=== PATIENT | male | born 1960 | race Caucasian/White ===

== ENCOUNTER 2017-08-31 08:53 | Emergency (ER) | payer OTHER ==
[~2017-08-31] VITALS: Ht 177.8 cm; Wt 126.1 kg
[~2017-08-31 08:53] MED LIST: ADULT LOW DOSE81 M1 PO; ALDACTONE25 MG PO; AMARYL4 MG PO; AMLODIPINE BESY10 MG PO; ASPIRIN81 M2 PO; CLEOCIN300 MG PO; FORTAMET1000 M1; FORTAMET1000 M1 PO; GLUCOPHAGE1000 MG PO; HYDROCHLOROTHIA25 MG PO; JANUVIA100 MG PO; KEFLEX500 MG PO; LABETALOL HCL200 MG PO; LANTUS 3 M100 UNITS1 SC; LIPITOR20 MG PO; LISINOPRIL40 MG PO; NEXIUM40 MG PO; NORMODYNE,TRAN200 MG PO; NORVASC10 MG PO; TRAMADOL HCL50 MG PO; VIAGRA100 MG PO; VICODIN,LORT1 TABLET PO
[2017-08-31] MEDS ORDERED: BACTRIM,SEPT1 TABLET PO (09:27)
[2017-08-31] MEDS ORDERED: AUGMENTIN875 MG PO (09:27)
[2017-08-31 09:58] VITALS: BP 132/68
== END 2017-08-31 09:58 | disposition home or self-care (01) ==
LOC: EME 08:53
DX: L03.116 Cellulitis of left lower limb (principal); Z88.8 Allergy status to other drugs, medicaments and biological substances
CPT/HCPCS: 99281; 99284

== ENCOUNTER 2018-01-06 18:55 | Emergency (ER) | payer OTHER ==
[~2018-01-06] VITALS: Ht 177.8 cm; Wt 128.8 kg
[~2018-01-06 18:55] MED LIST changes: +AUGMENTIN875 MG PO; +BACTRIM,SEPT1 TABLET PO
[2018-01-06 19:51] LABS: HEMATOCRIT 42.1 % (38.0-50.0); HEMOGLOBIN 14.4 G/DL (12.5-16.6); MCH 31.5 PG (29.0-34.0); MCHC 34.2 G/DL (30.0-36.0); MCV 92.1 FL (86-99); PLATELET COUNT 201 K/uL (156-360); RBC DIS.WIDTH-CV 12.3 % (11.8-14.6); RBC DIS.WIDTH-SD 41.4 % (39-53); RED BLOOD COUNT 4.57 M/uL (4.00-5.50); WHITE BLOOD COUNT 10.2 K/uL (4.1-10.2)
[2018-01-06 20:00] LABS: ALBUMIN 4.2 g/dL (3.2-4.8); CHLORIDE 103 mEq/L (99-109); SODIUM 140 mEq/L (136-147)
[2018-01-06 20:02] LABS: GLUCOSE 174 mg/dL (70-99)
[2018-01-06 20:03] LABS: TOTAL PROTEIN 7.3 g/dL (6.4-8.3)
[2018-01-06 20:04] LABS: TOTAL BILIRUBIN 0.6 mg/dL (0.0-1.0)
[2018-01-06 20:06] LABS: ALKALINE PHOSPHATASE 63 IU/L (3-129); CREATININE 1.1 mg/dL (0.6-1.3); GFR ESTIMATE (CALCULATED) > 59 mL/min/ (58.99-99999)
[2018-01-06 20:07] LABS: UREA NITROGEN (BUN) 20 mg/dL (9-23)
[2018-01-06 20:08] LABS: AST (GOT) 40 IU/L (2-34)
[2018-01-06 20:09] LABS: ALT (GPT) 59 IU/L (3-49)
[2018-01-06 20:12] LABS: TROP-I INTERPRETATION NEGATIVE; TROPONIN-I 0.02 ng/mL (0.0-0.30)
[2018-01-06 22:53] VITALS: BP 134/81
== END 2018-01-06 23:04 | disposition home or self-care (01) ==
LOC: EME 18:55
DX: R06.02 Shortness of breath (principal); G47.30 Sleep apnea, unspecified; E11.9 Type 2 diabetes mellitus without complications; E78.5 Hyperlipidemia, unspecified; I10 Essential (primary) hypertension; K21.9 Gastro-esophageal reflux disease without esophagitis; Z87.891 Personal history of nicotine dependence; Z79.4 Long term (current) use of insulin; Z79.82 Long term (current) use of aspirin; Z88.8 Allergy status to other drugs, medicaments and biological substances
CPT/HCPCS: 71046; 80053; 83880; 84484; 85027; 93005; 99281; 99284

== ENCOUNTER 2018-02-10 01:46 | Inpatient (IN) | payer OTHER ==
[~2018-02-10] VITALS: Ht 177.8 cm; Wt 125.6 kg
[~2018-02-10 01:46] MED LIST changes: +IRON325 M1 PO; +TRESIBA FL200 UNIT/1 SQ
[2018-02-10 08:06] VITALS: BP 125/68
[2018-02-10 14:25] LABS: HEMATOCRIT 38.6 % (38.0-50.0); HEMOGLOBIN 12.9 G/DL (12.5-16.6); MCV 91.7 FL (86-99)
[2018-02-10 15:02] VITALS: BP 122/61
[2018-02-10 15:50] VITALS: BP 129/70
[2018-02-10 20:06] VITALS: BP 122/62
[2018-02-11 00:15] VITALS: BP 122/77
[2018-02-11 04:03] VITALS: BP 171/91
[2018-02-11 04:35] VITALS: BP 148/72
[2018-02-11 06:21] VITALS: BP 132/78
[2018-02-11 06:47] LABS: HEMATOCRIT 40.5 % (38.0-50.0); HEMOGLOBIN 13.1 G/DL (12.5-16.6); MCV 92.9 FL (86-99)
[2018-02-11 07:05] LABS: CHLORIDE 100 MEQ/L (99-109); GFR ESTIMATE (CALCULATED) > 59 mL/min/ (58.99-99999); GLUCOSE 209 mg/dL (70-99); POTASSIUM 5.2 MEQ/L (3.7-5.4); SODIUM 135 MEQ/L (136-147); UREA NITROGEN (BUN) 26 mg/dL (9-23)
[2018-02-11 08:07] VITALS: BP 145/83
[2018-02-11 11:31] VITALS: BP 129/60
[2018-02-11] MEDS ORDERED: ELIQUIS2.5 MG PO (12:57)
[2018-02-11] MEDS ORDERED: CELECOXIB200 MG PO (12:58)
[2018-02-11] MEDS ORDERED: OXYCODONE HCL5 MG PO (12:59)
== END 2018-02-11 14:25 | DRG 470 ==
LOC: 2SOUTH 01:46 → ENRESERV 03:42 → 3WEST 07:17 → 2SOUTH 07:17 → 3WEST 14:22 → 2SOUTH 15:33 → 3WEST 02-11 14:25
PROVIDERS: Orthopaedic Surgery
PROC: 0SRB04A Replacement of Left Hip Joint with Ceramic on Polyethylene Synthetic Substitute, Uncemented, Open Approach (ICD-10-PCS; principal; 2018-02-10)
PROC: 0MBP0ZZ Excision of Left Knee Bursa and Ligament, Open Approach (ICD-10-PCS; principal; 2018-02-10)
DX: M16.12 Unilateral primary osteoarthritis, left hip (principal); M70.52 Other bursitis of knee, left knee; F17.200 Nicotine dependence, unspecified, uncomplicated; J40 Bronchitis, not specified as acute or chronic; I10 Essential (primary) hypertension; E11.9 Type 2 diabetes mellitus without complications; K21.9 Gastro-esophageal reflux disease without esophagitis; Z79.84 Long term (current) use of oral hypoglycemic drugs
CPT/HCPCS: 73501; 80048; 82948; 85014; 85018; 88304; 97530 GP; C1713; J0690; J1100; J1815; J2250; J2405; J3010; J7030; J7050; S0020